=== PATIENT | male | born 1960 | race Caucasian/White ===

== ENCOUNTER 2021-07-22 10:22 | Day surgery (SDC) | payer BC, SELFPAY ==
--- NOTE | 2021-07-21 09:59 | P.CONAN_ITS ---
Documented by User: Le Arizmendi NP 07/21/21 09:59 HPI - Anesthesia Eval Consult details Narrative: 60yo M for Colonoscopy [facility] Past Medical History Medical History HTN (hypertension) Hyperlipidemia Seasonal allergies Surgical History Surgical History Hx of cholecystectomy Hx of colonoscopy Social History Social History Patient Tobacco Use Status: Never used Tobacco Use of substances other than those prescribed or required for medical reasons: No Are you DNR?: No Advance Directives: No Advance Directives Information Provided: Yes Meds Allergies Allergy/AdvReac Type Severity Reaction Status Date / Time lactase [From Dairy Aid] Allergy Unknown Verified 07/22/21 11:00 mite-Dermatophagoides Allergy Unknown Verified 07/22/21 11:00 farandrew tony [dust mite - [place]] pollen extracts Allergy Unknown Verified 07/22/21 11:00 coffee (Coffea arabica) AdvReac Unknown Verified 07/22/21 11:00 Home Medications Medication Instructions Recorded Confirmed Last Taken Type amlodipine 2.5 mg tablet 1 tab PO DAILY 07/15/21 07/15/21 07/22/21 05:30 History atorvastatin 10 mg tablet 1 tab PO DAILY 07/15/21 07/15/21 07/22/21 05:30 History hydrochlorothiazide 25 mg tablet 1 tab PO DAILY 07/15/21 07/15/21 Unknown History lisinopril 40 mg tablet 1 tab PO DAILY 07/15/21 07/15/21 07/22/21 05:30 History Exam Exam Date and Time: July 21, 2021 0959 Assessment and Plan Assessment Anesthesia Assessment: Chart Reviewed Documented by User: Nicolette Jeffries MD 07/22/21 11:58 [facility] Past Medical History Medical History HTN (hypertension) Hyperlipidemia Seasonal allergies Family History Family history of problems with anesthesia: No Surgical History Surgical History Hx of cholecystectomy Hx of colonoscopy History of Problems with Anesthesia: No Social History Social History Patient Tobacco Use Status: Never used Tobacco Use of substances other than those prescribed or required for medical reasons: No Are you DNR?: No Advance Directives: No Advance Directives Information Provided: Yes Meds Allergies Allergy/AdvReac Type Severity Reaction Status Date / Time lactase [From Dairy Aid] Allergy Unknown Verified 07/22/21 11:00 mite-Dermatophagoides Allergy Unknown Verified 07/22/21 11:00 farinae, tony [dust mite - [place]] pollen extracts Allergy Unknown Verified 07/22/21 11:00 coffee (Coffea arabica) AdvReac Unknown Verified 07/22/21 11:00 Home Medications Medication Instructions Recorded Confirmed Last Taken Type amlodipine 2.5 mg tablet 1 tab PO DAILY 07/15/21 07/15/21 07/22/21 05:30 History atorvastatin 10 mg tablet 1 tab PO DAILY 07/15/21 07/15/21 07/22/21 05:30 History hydrochlorothiazide 25 mg tablet 1 tab PO DAILY 07/15/21 07/15/21 Unknown History lisinopril 40 mg tablet 1 tab PO DAILY 07/15/21 07/15/21 07/22/21 05:30 History Exam Height,Weight and Vital Signs: Height 5 ft 7.5 in Weight 95.254 kg Vital Signs Temp Pulse Resp BP Pulse Ox 07/22/21 11:00 96.8 F 82 18 137/84 98 Airway Mallampati Class: II (High arched narrow palate) TM Dist: >3cm Neck ROM: Full Loose/Missing/Broken Teeth: No (Caps intact) Heart: RRR Lungs: CTAB Assessment and Plan Assessment Anesthesia Assessment: Anesthesia Plan Discussed Final Anesthetic Review Family History of Problems with Anesthesia: No History of Problems with Anesthesia: No NPO: Yes ASA Class: II Final Preanesthetic Review: No Changes in Pt Med Stat, Meds/Allgs Chart Reviewed, Consent Obtained/Reviewed and Anes Risks/Benef Reviewed Patient Risk: Low Procedure Risk: Low Assessment/Block/Sedation in SS: Assess/Block/Sedation-SS Anesthetic Plan Anesthetic Plan: MAC: Disposition: Standard PACU
[2021-07-22 11:00] VITALS: BP 137/84; PULSE 82; RESP 18; TEMP 36; O2SAT 98; BMI 32.3
[2021-07-22] MEDS: Lactated Ringers 1,000 ML 100 ML IVCONT (11:16)
--- NOTE | 2021-07-22 12:00 | MHC.SHP ---
Pre-Procedural Eval Section A Date of Service: 07/22/21 The patient is an INPATIENT: No Changes since office visit: No Cold of Flu in the past 2 weeks, No New Medical Problems, No Changes in Medication and No Patient answered all questions The History & Physical has been completed within 30 days and I have reviewed it.: Yes Section B Chief Complaint: screening Allergies: Allergies Allergy/AdvReac Type Severity Reaction Status Date / Time lactase [From Dairy Aid] Allergy Unknown Verified 07/22/21 11:00 mite-Dermatophagoides Allergy Unknown Verified 07/22/21 11:00 farinae, tony [dust mite - [place]] pollen extracts Allergy Unknown Verified 07/22/21 11:00 coffee (Coffea arabica) AdvReac Unknown Verified 07/22/21 11:00 Plan I have reviewed the history and physical and performed a pertinent physical examination on my patient. No changes have occurred unless specified.
--- NOTE | 2021-07-22 12:47 | P.BOP_ITS ---
Brief Operative Note Date of Service: 07/22/21 Pre-op diagnosis: screening Post-op diagnosis: same Surgeon: Bakari Londono Anesthesia: MAC Was an Salvage [employer] used for this Procedure?: No Estimated blood loss (mL): 0 Pathology: none sent Condition: stable Disposition: PACU
[2021-07-22 12:48] VITALS: BP 106/64; PULSE 71; RESP 15; TEMP 36.7; O2SAT 98
[2021-07-22 13:03] VITALS: BP 126/74; PULSE 68; RESP 16; O2SAT 99
[2021-07-22 13:18] VITALS: BP 117/68; PULSE 64; RESP 16; TEMP 36.6; O2SAT 99
--- NOTE | 2021-07-23 00:25 | OP_ITS ---
SURGEON: Bakari Londono MD PREOPERATIVE DIAGNOSIS: POSTOPERATIVE DIAGNOSIS: PROCEDURE PERFORMED: ESTIMATED BLOOD LOSS: COMPLICATIONS: ANESTHESIA: ASSISTANTS: SPECIMENS: PROCEDURE: Colonoscopy to the terminal ileum. INDICATION: Colon cancer screening. MEDICATIONS: Monitored anesthesia care. DESCRIPTION OF PROCEDURE: History and physical performed. The risks and benefits of the procedure were explained to the patient. Informed consent was obtained. The patient was placed in the left lateral decubitus position. A digital rectal exam was performed and was found to be normal. The Olympus pediatric video colonoscope was introduced into the rectum and advanced to the cecum without difficulty. The cecum was identified by transillumination, palpation, and identification of ileocecal valve. Examination was performed. The scope was removed. He tolerated the procedure well and was taken to recovery area in stable condition. FINDINGS: The terminal ileum was explored for 20 cm and appeared normal. The visualized colonic mucosa was within normal limits without evidence of masses, ulcers, or polyps. The quality of prep was good. There was moderate sigmoid diverticulosis with a few scattered diverticula in the right colon. Retroflexed examination showed small internal hemorrhoids. IMPRESSION: Normal colonoscopy. RECOMMENDATIONS: 1. Follow up as needed. 2. Repeat colonoscopy is recommended in 10 years for average risk individuals. MD MEGAN Dsouza/NAELL / [id number]
== END 2021-07-22 14:05 | disposition home or self-care (01) ==
PROVIDERS: PCP Nurse Practitioner; Visit Provider Internal Medicine Gastroenterology
PROC: 0DJD8ZZ Inspection of Lower Intestinal Tract, Via Natural or Artificial Opening Endoscopic (ICD-10-PCS; CPT 45378; principal; 2021-07-22 11:50)
DX: Z12.11 Encounter for screening for malignant neoplasm of colon (principal); K57.30 Diverticulosis of large intestine without perforation or abscess without bleeding; K64.8 Other hemorrhoids; I10 Essential (primary) hypertension; E78.5 Hyperlipidemia, unspecified; J30.2 Other seasonal allergic rhinitis; Z79.899 Other long term (current) drug therapy
CPT/HCPCS: 45378